=== PATIENT | female | born 1975 | race Caucasian/White ===

== ENCOUNTER → 2017-01-19 | Outpatient (CLI) | payer OTHER ==
[~2017-01-19] MED LIST: ALBUTEROL MININEB NEB; ALBUTEROL17 GM INH; ALPRAZOLAM PO; BACTRIM DS TABL1 TAB PO; BENTYL10 MG PO; CAMBIA50 MG PO; CEPHALEXIN500 M1 PO; CIPRO PO; COMBIVENT U/D3 M2 INH; DESYREL50 MG PO; DILANTIN PO; DOXYCYCLINE HY100 M3 PO; ELMIRON100 MG PO; FLAGYL PO; FLOMAX0.4 MG PO; IMITREX PO; INHALER; LAMOTRIGINE200 MG PO; LISINOPRIL PO; LOSARTAN POTASS25 MG PO; NICOTINE TD; OMEPRAZOLE40 M1 PO; PHENERGAN PO; PHENERGAN25 M1 PO; PRILOSEC20 MG PO; PYRIDIUM PO; REMERON15 MG PO; SPIRIVA18 MCG INH; STIOLTO RESPIMAT4 GM INH; STRIVERDI RESPIM4 GM INH; TOPROL XL50 MG PO; VICODIN 5/500 T1 TAB PO; ZOLOFT PO; [UNRECOGNIZED DRUG - OTHER] TD
--- NOTE | ~2017-01-19 | CT57 ---
[facility] A Service of [facility] & [facility] RADIOLOGY TEXT RESULTS PATIENT: STEPHEN MERCHANT LOCATION: [facility] : 73 UNIT #: [id number] AGE: [address]: Mata Red MD SEX: F ORDER DR: [id number] [id number] [facility] [place] [facility]. [place], [place] [address] [id number] O MR#: [id number] Acc #: [id number] NAME: STEPHEN MERCHANT : 1975 SEX: F STUDY DATE/TIME: 01/19/2017 15:34 UNIT: [facility] ROOM: STUDY DESCRIPTION: CT Chest Wo Cont Attending Physician: Mata Red M.D. Referring Physician: Mata Red M.D. Ordering Physician: Mata Red M.D. Primary Care Physician: Julian Tejeda M.D. MEDICAL IMAGING REPORT This report is preliminary unless electronic signature is present EXAM CT chest without contrast INDICATIONS Chest pain for the past 3-4 days. Shortness of air and cough. Follow up right-sided pulmonary nodule. PROCEDURE Unenhanced CT of the chest. COMPARISON 11/06/2016 FINDINGS There is severe emphysema. Multifocal scarring in both lungs particularly the right upper lobe. Dominant nodule subpleural posterior right upper lobe measures 1.8 x 1.6 cm. It is unchanged from the previous study and is not significantly changed dating back to at least 12/09/2015. No new nodules. No new dense consolidation. No adenopathy is seen in the chest on this unenhanced study. The above described nodular density in the posterior right upper lobe shows internal high attenuation suggesting calcification. It is stable. No acute findings in the included upper abdomen. Stable right adrenal adenoma versus hyperplasia. No aggressive appearing bone lesion. IMPRESSION 1. Severe emphysema. 2. Nodular subpleural opacity/nodule in the posterior right upper lobe is unchanged since at least 12/09/2015. It has a high attenuation suggesting a benign process. 3. No new nodule or acute findings in the chest. Dictated by... [facility] A Service of [facility] RADIOLOGY TEXT RESULTS PATIENT: STEPHEN MERCHANT LOCATION: [facility] : 73 UNIT #: [id number] AGE: [address]: Mata Red MD SEX: F ORDER DR: Donnie Chandler M.D. THIS IS AN ELECTRONICALLY VERIFIED REPORT Donnie Chandler M.D. at 01/23/2017 7:02 AM Yasmin TD: 01/20/2017 08:00 JOB #: [id number] MEDICAL IMAGING REPORT COPY
--- NOTE | ~2017-01-19 | CR63 ---
[facility] A Service of [facility] & [facility] RADIOLOGY TEXT RESULTS PATIENT: STEPHEN MERCHANT LOCATION: [facility] : 73 UNIT #: [id number] AGE: [address]: Mata Red MD SEX: F ORDER DR: [id number] [facility] [address]. [place], [place] [address] [id number] O MR#: [id number] Acc #: [id number] NAME: STEPHEN MERCHANT : 1975 SEX: F STUDY DATE/TIME: 01/19/2017 17:50 UNIT: [facility] ROOM: STUDY DESCRIPTION: CR Chest 2 View Attending Physician: Mata Red M.D. Referring Physician: Mata Red M.D. Ordering Physician: Mata Red M.D. Primary Care Physician: Julian Tejeda M.D. MEDICAL IMAGING REPORT This report is preliminary unless electronic signature is present EXAM Chest PA and lateral 01/19/2017 HISTORY Chest pain beginning today. FINDINGS The heart is normal in size. There is a 2 cm nodule in the right upper lobe which is stable compared with 01/30/2016. Clinical correlation recommended. Lungs are hyperinflated with emphysematous and fibrotic changes characteristic of COPD. No airspace consolidation is seen. There are no pleural effusions. IMPRESSION COPD with stable 2 cm nodule in the right upper lobe compared with 01/30/2016. Clinical correlation is recommended to exclude neoplasm. Dictated by... Alvin Lr M.D. THIS IS AN ELECTRONICALLY VERIFIED REPORT Alvin Lr M.D. at 01/20/2017 3:26 PM KRT/gideon TD: 01/20/2017 13:17 JOB #: [id number] MEDICAL IMAGING REPORT COPY
--- NOTE | ~2017-01-19 | NM69 ---
[facility] A Service of [facility] & [facility] RADIOLOGY TEXT RESULTS PATIENT: STEPHEN MERCHANT LOCATION: [facility] : 73 UNIT #: [id number] AGE: [address]: Mata Red MD SEX: F ORDER DR: [id number] [facility] [address] [place], [place] [address] [id number] O MR#: [id number] Acc #: [id number] NAME: STEPHEN MERCHANT : 1975 SEX: F STUDY DATE/TIME: 01/19/2017 18:01 UNIT: [facility] ROOM: STUDY DESCRIPTION: NM Pulm Vent and Perf Attending Physician: Mata Red M.D. Referring Physician: Mata Red M.D. Ordering Physician: Mata Red M.D. Primary Care Physician: Julian Tejeda M.D. MEDICAL IMAGING REPORT This report is preliminary unless electronic signature is present EXAM Pulmonary ventilation and perfusion, 01/19/2017. CLINICAL HISTORY Cough since Sunday, worse for past 3 days. COMPARISON Chest radiograph, 01/19/2017. PROCEDURE Study performed with 35.8 mCi technetium 99m DTPA aerosol by inhalation followed by 5.9 mCi technetium 99m MAA IV. FINDINGS Chest radiograph shows no acute disease. Ventilation images show no segmental defects. Perfusion images show no segmental defects. There is slight decrease ventilation and perfusion at the apices suggesting there may be an element of COPD. IMPRESSION Low likelihood ratio for pulmonary embolism. There is decreased apical ventilation and perfusion likely reflecting COPD, but there is no evidence to suggest pulmonary embolism. Dictated by... Be Delgado M.D. THIS IS AN ELECTRONICALLY VERIFIED REPORT Be Delgado M.D. at 01/22/2017 5:04 PM TEV/pc [facility] A Service of [facility] & [facility] RADIOLOGY TEXT RESULTS PATIENT: STEPHEN MERCHANT LOCATION: [facility] : 73 UNIT #: [id number] AGE: [address]: Mata Red MD SEX: F ORDER DR: TD: 01/20/2017 13:39 JOB #: [id number] MEDICAL IMAGING REPORT COPY
[2017-01-19 15:10] LABS: POC - CREATININE 1.28 mg/dL (0.44-1.03)
== END | disposition home or self-care (01) ==
LOC: CCAT 14:37
PROVIDERS: Internal Medicine Pulmonary Disease
DX: R07.9 Chest pain, unspecified (principal); J44.1 Chronic obstructive pulmonary disease with (acute) exacerbation; J44.0 Chronic obstructive pulmonary disease with (acute) lower respiratory infection; J20.9 Acute bronchitis, unspecified; J43.9 Emphysema, unspecified; R91.1 Solitary pulmonary nodule
CPT/HCPCS: 71020; 71250; 78582; 82565; A9540; A9567

== ENCOUNTER → 2017-07-23 | Outpatient (CLI) | payer OTHER ==
--- NOTE | ~2017-07-23 | CT57 ---
[facility] A Service of [facility] & [facility] RADIOLOGY TEXT RESULTS PATIENT: STEPHEN MERCHANT [facility] : 73 UNIT #: [id number] AGE: [address]: Mata Red MD SEX: F ORDER DR: [id number] [facility] [address] [place], [place] [address] [id number] O MR#: [id number] Acc #: [id number] NAME: STEPHEN MERCHANT : 1975 SEX: F STUDY DATE/TIME: 07/23/2017 11:03 UNIT: [facility] ROOM: STUDY DESCRIPTION: CT Chest Wo Cont Attending Physician: Mata Red M.D. Referring Physician: Mata Red M.D. Ordering Physician: Mata Red M.D. Primary Care Physician: Julian Tejeda M.D. MEDICAL IMAGING REPORT This report is preliminary unless electronic signature is present EXAM CT of the chest without contrast INDICATION Pulmonary nodule is located within the right lower lobe. This is a followup study. It was initially identified in November of 2015 and has been previously biopsied. TECHNIQUE Axial CT images were obtained from the thoracic inlet to the dome of the diaphragm. No intravenous contrast material was administered. This CT exam was performed with one or more of the following radiation dose reduction techniques: Automatic exposure control, adjustment of mA and/or kV according to patient size, and iterative reconstruction. FINDINGS Background emphysematous changes are seen. These are relatively advanced for this patient's age of 42. Stable scarring is identified at the right lung apex. The previously identified right upper lobe pulmonary nodule actually measures smaller on today's exam at 1.5 x 1.3 cm. It is felt to be benign given the interval decrease in size over time. No new pulmonary nodules or masses are seen. The thyroid gland, trachea, and esophagus appear unremarkable. There is no pleural or pericardial effusion. Mediastinal lymph nodes do not appear pathologically enlarged, thoracic aorta measures within normal size limits. Images through the upper abdomen demonstrate some dystrophic calcifications within the left kidney. No acute abnormalities are seen within the upper abdomen. Review of bony windows does not demonstrate any aggressive osseous abnormalities. [facility] A Service of [facility] & [facility] RADIOLOGY TEXT RESULTS PATIENT: STEPHEN MERCHANT LOCATION: [facility] : 73 UNIT #: [id number] AGE: [address]: Mata Red MD SEX: F ORDER DR: IMPRESSION 1. Previously identified right upper lobe pulmonary nodule has been stable in size since November of 2015. It is favored to be benign, but has been biopsied in the past and correlation with those biopsy results is recommended. Potentially, if those were nondiagnostic, a repeat CT in November of 2017 could be considered to document a full 2 years of stability, but again, it is favored to be benign. There is some additional surrounding mild nodularity which also appears stable when compared to November of 2015. 2. Patient does have relatively advanced emphysematous changes for the age of 42. No new pulmonary nodules or masses are seen. Dictated by... Maddy Bowman M.D. THIS IS AN ELECTRONICALLY VERIFIED REPORT Maddy Bowman M.D. at 07/25/2017 8:33 AM AFF/aa TD: 07/24/2017 09:45 JOB #: [id number] MEDICAL IMAGING REPORT Page 1 of 1 COPY
== END | disposition home or self-care (01) ==
LOC: CCAT 09:40
DX: R91.1 Solitary pulmonary nodule (principal); J43.9 Emphysema, unspecified; J45.31 Mild persistent asthma with (acute) exacerbation; R91.8 Other nonspecific abnormal finding of lung field
CPT/HCPCS: 71250